=== PATIENT | female | born 1940 | race Asian ===

== ENCOUNTER 2022-07-01 14:17 | Emergency (ER) | payer OTHER ==
[~2022-07-01] VITALS: Ht 162.6 cm; Wt 53.5 kg
--- NOTE | 2022-07-01 15:00 | NUR ---
PT BIB FRIEND AWAKE AND ALERT AOX4, NO SOB OR DISTRESS. PT C/O HER JAW LOCKING UP WHILE SHE WAS EATING LUNCH AT 1300. PT STATED HE HAPPENED YESTERDAY WELL BUT WENT AWAY IN 30 MIN. PT HAS HX OF HTN, HLD, PRE DM2. PT DEIENES PAIN. N/V.
--- NOTE | 2022-07-01 15:01 | NUR ---
MD DR RIVERA AT BEDSIDE
[2022-07-01 15:10] VITALS: BP_SYST 133
[2022-07-01 15:31] LABS: BASOPHILS % (AUTO) 0.6 % (0.0-2.0); EOSINOPHILS # (AUTO) 0.1 K/uL (0.0-0.4); EOSINOPHILS % (AUTO) 1.6 % (0.0-4.0); HEMATOCRIT 41.9 % (36-48); HEMOGLOBIN 13.9 g/dL (12.0-16.0); LYMPHOCYTES # (AUTO) 1.4 K/uL (1.0-5.5); MEAN CORPUSCULAR HEMOGLOBIN 33 pg (27-31); MEAN CORPUSCULAR HGB CONC 33 % (32-36); MEAN CORPUSCULAR VOLUME 100 fL (79.0-98.0); MONOCYTES # (AUTO) 0.4 K/uL (0.0-1.0); MONOCYTES % (AUTO) 9.4 % (1.7-9.3); NEUTROPHILS # (AUTO) 2.5 K/uL (1.8-7.7); NEUTROPHILS % (AUTO) 56.4 % (40.0-70.0); PLATELET COUNT (AUTO) 195 K/uL (130-430); RED CELL DISTRIBUTION WIDTH 13.7 % (9.0-15.0); WHITE BLOOD COUNT (AUTO) 4.4 K/uL (4.8-10.8)
[2022-07-01 15:45] LABS: ANION GAP 6 (5-15); CALCIUM 9.1 mg/dL (8.4-11.0); CHLORIDE 105 mmol/L (98-107); CREATININE 0.82 mg/dL (0.55-1.30); GLUCOSE 113 mg/dL (70-99); UREA NITROGEN, BLOOD 22 mg/dL (8-21)
[2022-07-01 15:49] LABS: ERYTHROCYTE SEDIMENTATION RATE 12 MM/HR (0-20)
[2022-07-01 15:51] LABS: ALANINE AMINOTRANSFERASE 39 U/L (12-78); ALBUMIN 3.9 g/dL (3.4-4.8); ASPARTATE AMINOTRANSFERASE 22 U/L (10-37); TOTAL BILIRUBIN 0.9 mg/dL (0.0-1.0)
[2022-07-01 15:52] LABS: C-REACTIVE PROTEIN QUANT < 0.2 mg/dL (0-0.5)
[2022-07-01] MEDS ORDERED: LORA-259 PO (16:14)
[2022-07-01 16:28] VITALS: BP_SYST 125
--- NOTE | 2022-07-01 16:30 | NUR ---
Patient given written and verbal discharge instructions and verbalizes understanding. ER MD DR RIVERA discussed with patient the results and treatment provided. Patient in stable condition. ID arm band removed. Rx of ATIVAN given. Patient educated on pain management and to follow up with PMD. Pain Scale 0/10. Opportunity for questions provided and answered. Medication side effect fact sheet provided.
== END 2022-07-01 16:30 | disposition home or self-care (01) ==
LOC: SED 14:17
DX: M26.69 Other specified disorders of temporomandibular joint (principal); R68.84 Jaw pain; Z79.899 Other long term (current) drug therapy
CPT/HCPCS: 36415; 70110-TC; 80053; 85025; 85651-TC; 86140; 99284